=== PATIENT | female | born 1985 | race Caucasian/White ===

== ENCOUNTER 2017-01-15 13:18 | Emergency (ER) | payer OTHER ==
[2017-01-15] MEDS ORDERED: LORAZEPAM 2 MG/ML 1ML SDV ONE (13:51)
[2017-01-15] MEDS ORDERED: METOCLOPRAMIDE HCL 5 MG/ML 2ML VIAL ONE (13:51)
[2017-01-15] MEDS ORDERED: DIPHENHYDRAMINE HCL 50 MG/1 ML VIAL ONE (13:51)
[2017-01-15] MEDS ORDERED: SODIUM CHLORIDE 0.9% 1,000 ML ONE (13:51)
[2017-01-15 14:53] LABS: GLUCOSE,CSF 60 mg/dL (70% OF SERUM)
[2017-01-15 15:11] LABS: CSF APPEARANCE CLEAR; CSF COLOR COLORLESS; CSF RBC < 10 k/uL; CSF WBC < 10.0 /uL (<10)
[2017-01-20 10:13] LABS: PERFORMING LAB ARUP
== END 2017-01-15 15:58 | disposition home or self-care (01) ==
LOC: ED 13:18
DX: R51 Headache (principal); J11.1 Influenza due to unidentified influenza virus with other respiratory manifestations; M54.2 Cervicalgia; R50.9 Fever, unspecified